=== PATIENT | male | born 1945 | race Caucasian/White ===

== ENCOUNTER 2017-06-15 11:16 | Day surgery (SDC) | payer MEDICARE, OTHER ==
[~2017-06-15] VITALS: Ht 177.8 cm; Wt 95.2 kg
--- NOTE | ~2017-06-15 | EGD ---
EGD REPORT [facility] [address] [id number] NAME: YINKA JAVIER : [birth year] STATUS : REG [facility]#: [id number] AGE: 71 ADM/REG DATE : 06/15/17 MR#: [id number] REPORT SERV DATE: 06/17/17 DICTATED BY: MARC JORDAN DATE: 06/17/17 REPORT STATUS : Draft [facility]ANS[facility]IBED BY: [facility] DATE: 06/17/17 [facility] Center Patient Name: Yinka Javier Date of : 1945 Attending MD: MARC JORDAN MD Procedure Date No Time: 06/15/2017 Procedure: Colonoscopy Indications: Screening for colorectal malignant neoplasm Referring MD: ARAM SINCLAIR Medicines: Propofol per Anesthesia Complications: No immediate complications. Procedure: Pre-Anesthesia Assessment: - ASA Grade Assessment: III - A patient with severe systemic disease. - Prior to the procedure, a History and Physical was performed, and patient medications and allergies were reviewed. The patient's tolerance of previous anesthesia was also reviewed. The risks and benefits of the procedure and the sedation options and risks were discussed with the patient. All questions were answered, and informed consent was obtained. Prior Anticoagulants: The patient has taken aspirin, last dose was 5 days prior to procedure. ASA Grade Assessment: III - A patient with severe systemic disease. After reviewing the risks and benefits, the patient was deemed in satisfactory condition to undergo the procedure. After I obtained informed consent, the scope was passed under direct vision. Throughout the procedure, the patient's blood pressure, pulse, and oxygen saturations were monitored continuously. The CF [id number] was introduced through the anus and advanced to the cecum, identified by appendiceal orifice and ileocecal valve. The appendiceal orifice and rectum were photographed. The colonoscopy was performed without difficulty. The patient tolerated the procedure well. The quality of the bowel preparation was good. Findings: The perianal and digital rectal examinations were normal. The colon (entire examined portion) appeared normal. A sessile polyp was found in the ascending colon. The polyp was 2 mm in size. The polyp was removed with a cold biopsy forceps. Resection and retrieval were complete. Multiple small and large-mouthed diverticula were found in the recto-sigmoid colon, in the sigmoid colon, in the descending colon, in EGD REPORT [address] [address] NAME: YINKA JAVIER : [birth year] STATUS : REG [facility]#: [id number] AGE: 71 ADM/REG DATE : 06/15/17 MR#: [id number] REPORT SERV DATE: 06/17/17 DICTATED BY: MARC JORDAN DATE: 06/17/17 REPORT STATUS : Draft TRANSCRIBED BY: [employer] DATE: 06/17/17 the transverse colon and in the ascending colon. Non-bleeding internal hemorrhoids were found during retroflexion and were mild, small and Grade I (internal hemorrhoids that do not prolapse). Impression: - The entire examined colon is normal. - One 2 mm polyp in the ascending colon. Resected and retrieved. - Diverticulosis in the recto-sigmoid colon, in the sigmoid colon, in the descending colon, in the transverse colon and in the ascending colon. - Non-bleeding internal hemorrhoids. Recommendation: - Patient has a contact number available for emergencies. The signs and symptoms of potential delayed complications were discussed with the patient. Return to normal activities tomorrow. Written discharge instructions were provided to the patient. - Return to previous diet. - Continue present medications. - Await pathology results. - Repeat colonoscopy in 5-10 years for surveillance based on pathology results. - Return to my office as previously scheduled. - Discharge patient to home. Procedure Code(s): --- Professional --- 10603, Colonoscopy, flexible, proximal to splenic flexure; with biopsy, single or multiple Diagnosis Code(s): --- Professional --- K64.0, First degree hemorrhoids K57.30, Diverticulosis of large intestine without perforation or abscess without bleeding D12.2, Benign neoplasm of ascending colon Z12.11, Encounter for screening for malignant neoplasm of colon CPT copyright 2013 [employer]. All rights reserved. The codes documented in this report are preliminary and upon environmental studies program director review may be revised to meet current compliance requirements. Marc Jordan MD MARC JORDAN MD 06/15/2017 3:30 PM EGD REPORT [facility] [address] [address] NAME: YINKA JAVIER : [birth year] STATUS : REG [facility] [place] PAT#: [id number] AGE: 71 ADM/REG DATE : 06/15/17 MR#: [id number] REPORT SERV DATE: 06/17/17 DICTATED BY: MARC JORDAN DATE: 06/17/17 REPORT STATUS : Draft TRANSCRIBED BY: [employer] DATE: 06/17/17 This report has been signed electronically. Number of Addenda: 0 Note Initiated On: 06/15/2017 2:41 PM Scope Withdrawal Time 0 hours 14 minutes 41 seconds [address] [id number]
[~2017-06-15 11:16] MED LIST: ADVIL PO; ALEVE220 MG PO; ALLEGRA180 PO; ASA5GR PO; ASAB PO; AVALIDE1 TA1 PO; AVODART PO; CALGLUCTAB PO; CINNAMON PO; CIP5 PO; CLARIT10 PO; COZ25 PO; FISH-EPA1000 MG PO; FLONASE NAS; HYZAAR 100/25 T1 TAB PO; HYZAAR1 TAB PO; LOP25 PO; LOP50 PO; MOBIC7.5 PO; MULTIPLE VIT PO; NEUR300 PO; OS500+D PO; PCET PO; PRILO PO; PRILOSEC OTC20 MG PO; PRIN10 PO; RED YEAS1 PO; SAM-E PO; ULTRAM50 PO; VITAMIN D31000 UNIT PO; VITC500 PO; [UNRECOGNIZED DRUG - OTHER] OR
== END 2017-06-15 23:59 | disposition home health service (06) ==
LOC: DMU 11:16
PROVIDERS: Internal Medicine Gastroenterology
PROC: 0DBK8ZX Excision of Ascending Colon, Via Natural or Artificial Opening Endoscopic, Diagnostic (ICD-10-PCS; principal; 2017-06-15 11:30)
DX: Z12.11 Encounter for screening for malignant neoplasm of colon (principal); D12.2 Benign neoplasm of ascending colon; I10 Essential (primary) hypertension; K21.9 Gastro-esophageal reflux disease without esophagitis; K64.0 First degree hemorrhoids; K57.30 Diverticulosis of large intestine without perforation or abscess without bleeding; Z88.5 Allergy status to narcotic agent; Z79.82 Long term (current) use of aspirin; Z79.899 Other long term (current) drug therapy; Z87.891 Personal history of nicotine dependence; Z98.890 Other specified postprocedural states
CPT/HCPCS: 88305